=== PATIENT | female | born 1995 | race Caucasian/White ===

== ENCOUNTER 2017-07-16 20:42 | Emergency (ER) | payer BC ==
[~2017-07-16] VITALS: Ht 170.2 cm; Wt 65.9 kg
[2017-07-16 20:46] VITALS: BP 129/73; TEMP 98.5
[2017-07-16 21:12] LABS: BASO # 0.1 (0.0-0.2); BASO % 0.8 % (0.0-2.0); EOS # 0.2 (0.0-0.7); EOS % 2.1 % (0-4.0); GRAN # 4.9 (1.4-6.5); GRAN % 64.4 % (42.2-75.2); HEMATOCRIT 41.3 % (35.0-45.0); HEMOGLOBIN 13.8 g/dl (12.0-15.0); LYMPH % 26.8 % (20.0-51.0); MEAN CELL VOLUME 87 fl (80.0-95.0); MEAN CORPUSCULAR HEMOGLOBIN 29 pg (26.0-32.0); MEAN CORPUSCULAR HGB CONC 33 g/dl (33.0-37.0); MEAN PLATELET VOLUME 11.5 fl (7.4-10.4); MONO # 0.4 (0.1-0.6); MONO % 5.8 % (1.7-9.3); PLATELET COUNT 190 K/mm3 (130-400); RED BLOOD COUNT 4.75 M/mm3 (4.10-5.30); REDCELL DISTRIBUTION WIDTH-CV 11.4 % (11.5-14.5)
[2017-07-16 21:18] LABS: CALCIUM 9.4 mg/dL (8.4-10.2); CREATININE, serum 0.82 mg/dL (0.52-1.25); POTASSIUM 3.8 mmol/L (3.4-5.0)
[2017-07-16 22:50] VITALS: PULSE 96
== END 2017-07-16 22:50 | disposition home or self-care (01) ==
LOC: COL.ER 20:42
PROVIDERS: Emergency Medicine
DX: S19.9XXA Unspecified injury of neck, initial encounter (principal); R13.10 Dysphagia, unspecified; W21.07XA Struck by softball, initial encounter; Y93.64 Activity, baseball
CPT/HCPCS: J1100; J7030; Q9967

== ENCOUNTER 2019-02-02 14:54 | Emergency (ER) | payer BC ==
[~2019-02-02] VITALS: Ht 170.2 cm; Wt 75.0 kg
[2019-02-02] MEDS ORDERED: PRENATAL TABLET PO (15:18)
[2019-02-02] MEDS ORDERED: ZYRTEC 10MG10 MG PO (15:18)
[2019-02-02 15:48] LABS: COLLECTION METHOD CLEAN CATCH
[2019-02-02 16:14] LABS: PH 5 (5-8); URINE APPEARANCE Hazy; URINE BACTERIA Rare /hpf; URINE BILIRUBIN Negative (NEGATIVE); URINE BLOOD Negative (NEGATIVE); URINE COLOR Yellow; URINE GLUCOSE Negative (NEGATIVE); URINE KETONE Trace (NEGATIVE); URINE LEUKOCYTE ESTERASE Negative (NEGATIVE); URINE NITRATE Negative (NEGATIVE); URINE PROTEIN(semi-quant) Negative (NEGATIVE); URINE RBC 0-2 /hpf; URINE UROBILINOGEN Negative (NEGATIVE)
[2019-02-02 16:22] VITALS: BP 112/70; PULSE 78; TEMP 98.2
== END 2019-02-02 16:21 | disposition home or self-care (01) ==
LOC: COL.ER 14:54
PROVIDERS: Emergency Medicine
DX: O26.892 Other specified pregnancy related conditions, second trimester (principal); R10.2 Pelvic and perineal pain; Z3A.19 19 weeks gestation of pregnancy

== ENCOUNTER 2020-08-02 22:47 | Emergency (ER) | payer BC ==
[~2020-08-02] VITALS: Ht 170.2 cm; Wt 68.2 kg
[~2020-08-02 22:47] MED LIST: PRENATAL TABLET PO; ZYRTEC 10MG10 MG PO
[2020-08-02 23:36] VITALS: TEMP 97.8
[2020-08-03] MEDS ORDERED: CEPHALEXIN500 M1 PO (00:11)
[2020-08-03 00:46] VITALS: BP 122/84; PULSE 74
== END 2020-08-03 00:46 | disposition home or self-care (01) ==
LOC: COL.ER 22:47
DX: N64.4 Mastodynia (principal)
CPT/HCPCS: J1885